=== PATIENT | female | born 1990 | race Hispanic/Latino ===

== ENCOUNTER 2017-12-24 13:31 | Emergency (ER) | payer MEDICAID, OTHER ==
[2017-12-24] MEDS ORDERED: CYCLOBENZAPRINE HCL 10 MG TABLET ONE (16:21)
== END 2017-12-24 17:07 | disposition home or self-care (01) ==
LOC: EDH 13:31
DX: S16.1XXA Strain of muscle, fascia and tendon at neck level, initial encounter (principal); G44.209 Tension-type headache, unspecified, not intractable; Z88.0 Allergy status to penicillin; X58.XXXA Exposure to other specified factors, initial encounter; Y93.89 Activity, other specified; Y92.89 Other specified places as the place of occurrence of the external cause; Y99.8 Other external cause status
CPT/HCPCS: 81025

== ENCOUNTER 2021-04-02 13:51 | Emergency (ER) | payer MEDICAID ==
[~2021-04-02] VITALS: Ht 152.4 cm; Wt 71.7 kg
[2021-04-02 16:00] VITALS: BP 121/81
[2021-04-02 16:07] LABS: BASOPHILS % (AUTO) 0.5 % (0.0-5.0); HEMATOCRIT 36.7 % (36-48); LYMPHOCYTES % (AUTO) 31.7 % (21.0-51.0); MEAN CORPUSCULAR HEMOGLOBIN 27.7 pg (27.0-33.0); MEAN CORPUSCULAR HGB CONC 33.2 g/dL (32.0-36.0); MEAN CORPUSCULAR VOLUME 83.2 fL (79-99); MONOCYTES % (AUTO) 6.3 % (3.0-13.0); NEUTROPHILS % (AUTO) 60.2 % (40.0-77.0); PLATELET COUNT (AUTO) 187 K/uL (130-400); RED BLOOD CELL COUNT(AUTO) 4.41 MIL/uL (4.00-5.50); RED CELL DISTRIBUTION WIDTH 14.5 % (11.0-15.5); WHITE BLOOD COUNT (AUTO) 5.8 K/uL (4.8-10.8)
[2021-04-02 16:21] LABS: CREATININE 0.7 mg/dL (0.5-1.5); POTASSIUM 3.8 mmol/L (3.5-5.1)
[2021-04-02] MEDS ORDERED: AZIT250T9 PO (18:44)
[2021-04-02] MEDS ORDERED: PSEU120T62 PO (18:44)
[2021-04-02] MEDS ORDERED: IBUP-2070 PO (18:44)
== END 2021-04-02 19:18 | disposition home or self-care (01) ==
LOC: EDH 13:51
DX: J32.9 Chronic sinusitis, unspecified (principal); Z20.822 Contact with and (suspected) exposure to COVID-19; Z98.890 Other specified postprocedural states; Z79.899 Other long term (current) drug therapy
CPT/HCPCS: 36415; 71045; 80048; 81025; 85025; 87040 ×2; 87635; 87804 ×2; 87807; 87880; 99284; C9803